=== PATIENT | female | born 1960 | race Caucasian/White ===

== ENCOUNTER 2023-05-22 17:10 | Emergency (ER) | payer BC, OTHER ==
[2023-05-22] MEDS ORDERED: Sodium Chloride 0.9% 10 ML Syringe FLUSH PRN (17:37)
[2023-05-22 18:00] LABS: BASOPHILS PERCENT AUTO 0.2 % (0.1-1.3); EOSINOPHILS PERCENT AUTO 0.2 % (0.0-5.4); HEMATOCRIT 35.6 % (34.3-46.0); HEMOGLOBIN 12.6 g/dL (11.2-15.5); IMMATURE GRAN PERCENT AUTO 0.2 % (0.0-0.7); LYMPHOCYTES ABSOLUTE AUTO 0.65 K/uL (0.8-3.3); LYMPHOCYTES PERCENT AUTO 14.9 % (11.4-47.7); MEAN CORPUSCULAR HEMOGLOBIN 30.7 pg (31.6-35.5); MEAN CORPUSCULAR HGB CONC 35.4 g/dL (31.6-35.5); MEAN CORPUSCULAR VOLUME 86.8 fL (81.4-99.0); MONOCYTES ABSOLUTE AUTO 0.37 K/uL (0.20-0.90); MONOCYTES PERCENT AUTO 8.5 % (3.3-12.6); NEUTROPHILS ABSOLUTE AUTO 3.31 K/uL (1.0-7.6); PLATELET COUNT,PLT 143 K/uL (130-375); WHITE BLOOD CELL COUNT,WBC 4.4 K/uL (3.2-11.0)
[2023-05-22] MEDS ORDERED: Lactated Ringers 1,000 ML IV ONE (18:00)
[2023-05-22 18:12] LABS: BASOPHILS ABSOLUTE AUTO 0.01 K/uL (0.00-0.10); EOSINOPHILS ABSOLUTE AUTO 0.01 K/uL (0.00-0.40); IMMATURE GRAN ABSOLUTE AUTO 0.01 K/uL (0.00-0.23)
[2023-05-22 18:19] LABS: C-REACTIVE PROTEIN 3.39 mg/dL (0.0-0.3); CALCIUM 8.3 mg/dL (8.5-10.1); CREATININE 1.1 mg/dL (0.6-1.0); EST CRCL DRUG DOSING (CG) 42.74 mL/min; POTASSIUM,K 3.4 mmol/L (3.6-5.2)
[2023-05-22 18:20] LABS: ANION GAP 12.4 mmol/L (5.0-14.0)
[2023-05-22 18:25] LABS: LACTIC ACID 1.3 mmol/L (0.4-2.0)
[2023-05-22 18:47] LABS: APPEARANCE,URINE SLIGHTLY CLOUDY (CLEAR); BILIRUBIN,URINE NEGATIVE (NEGATIVE); COLOR,URINE YELLOW (YELLOW); GLUCOSE,URINE NEGATIVE (NEGATIVE); KETONES,URINE NEGATIVE (NEGATIVE); LEUKOCYTE ESTERASE,URINE NEGATIVE (NEGATIVE); NITRITE,URINE NEGATIVE (NEGATIVE); OCCULT BLOOD,URINE TRACE-INTACT (NEGATIVE); PROTEIN,URINE NEGATIVE (NEGATIVE); UROBILINOGEN,URINE 0.2 EU/dL (0.2-1.0)
[2023-05-22 18:54] LABS: AMORPHOUS SEDIMENT,URINE NOT SEEN; BACTERIA,URINE FEW; EPITHELIAL CELLS,URINE MANY; MUCUS,URINE NOT SEEN; RBC,URINE 0-5 (0-5); WBC,URINE 0-5 (0-5)
[2023-05-22 18:57] LABS: CORONAVIRUS COVID-19 NAA NEGATIVE (NEGATIVE); INFLUENZA A NAA NEGATIVE (NEGATIVE); INFLUENZA B NAA NEGATIVE (NEGATIVE); RESPIRATORY SYNCYTIAL VIR NAA NEGATIVE (NEGATIVE)
[2023-05-22] MEDS ORDERED: Ibuprofen 600 MG Tab PO ONE (19:20)
== END 2023-05-22 19:36 | disposition home or self-care (01) ==
LOC: JP.ED 17:10
DX: B34.9 Viral infection, unspecified (principal); E78.00 Pure hypercholesterolemia, unspecified; Z79.899 Other long term (current) drug therapy; Z88.1 Allergy status to other antibiotic agents; Z20.822 Contact with and (suspected) exposure to COVID-19
CPT/HCPCS: 0241U; 36415; 71045; 80048; 81001; 83605; 85025; 86140; 87040; 87086; 96360; 99284; A9270; J3490; J7120

== ENCOUNTER 2023-05-28 09:33 | Emergency (ER) | payer BC ==
[2023-05-28 11:17] LABS: LYME AB IgG Positive (Negative); LYME AB IgM Positive (Negative)
[2023-05-31 16:30] LABS: B. BURGDORFERI IGG IMMUNOBLOT Positive (Negative); B. BURGDORFERI IGM IMMUNOBLOT Positive (Negative)
[2023-06-01 05:18] LABS: EHRLICHIA CHAFFEENSIS AB, IGG <1:64 (<1:64); EHRLICHIA CHAFFEENSIS AB, IGM < 1:16 (< 1:16)
== END 2023-05-28 11:45 | disposition home or self-care (01) ==
LOC: JP.ED 09:33
DX: A69.20 Lyme disease, unspecified (principal); E78.00 Pure hypercholesterolemia, unspecified; Z88.1 Allergy status to other antibiotic agents; Z79.899 Other long term (current) drug therapy
CPT/HCPCS: 86617; 86617-59; 86618; 86666; 86753; 99283